=== PATIENT | female | born 2005 | race Caucasian/White ===

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

== ENCOUNTER 2025-01-10 18:38 | Emergency (ER) | payer SELFPAY ==
[2025-01-10 18:39] VITALS: BP 142/89; PULSE 116; RESP 16; TEMP 36.2; O2SAT 98
--- NOTE | 2025-01-10 19:04 | EDS_ITS ---
HPI History of Present Illness Chief Complaint: Dental Informant: patient Onset/Context/Timing Onset: Weeks (2) Context: Gradual Onset Timing: Continuous Quality: Sharp, stabbing Location: Left lower molar Worsened by: Chewing Relieved by: - (Nothing) Associated Symptoms Assocated Symptom - Dental: jaw swelling and face swelling; Negative for fever, cold sensitivity or hot sensitivity Narrative Narrative: Patient presents with left lower dental pain that has been getting worse over the past 2 weeks. Patient describes her pain as sharp and stabbing. Patient states it is over the left lower second molar. Patient states her pain is worse with chewing. Patient states she has been taking Tylenol with minimal relief. Patient states she has had intermittent swelling of her jaw and face. Patient denies any hot or cold sensitivities. Patient denies any fevers or chills. PFSH PFSH Medical History no medical history no medical history Home Medications ?Medication ?Instructions ?Recorded ?Last Taken ?Type albuterol sulfate 90 mcg/actuation 1 inh inhalation ON CE 11/17/21 Unknown History aerosol inhaler loratadine 10 mg tablet (Claritin) 10 mg PO DAILY 04/03 Unknown History multivitamin 1 tab PO DAILY 11/17/21 Unkn own History penicillin V potassium 500 mg 500 mg PO 4X/DAY #40 tab s 01/10/25 Unknown Rx tablet Allergy/AdvReac Type Severity Reaction Status Date / Time No Known Allergies Allergy Verified 06/14/23 17:23 Surgical History no surgical history no surgical history Social History Smoking Status: Never smoker alcohol intake: never ROS ROS ED Constitutional Constitutional ED: Denies chills or fever(s) Eyes Eyes: Denies blurry vision or change in vision ENT ENT ED: Denies rhinorrhea or sore throat Cardiovascular Cardiovascular: Denies chest pain or palpitations Respiratory/Chest Respiratory/Chest: Denies cough or dyspnea Gastrointestinal Gastrointestinal: Denies nausea or vomiting Genitourinary Genitourinary ED: Denies dysuria or hematuria Musculoskeletal Musculoskeletal: Denies back pain or neck pain Integumentary Denies abscess or rash Neurologic Neurologic: Denies headache(s) or weakness Allergic/Immunologic Allergic/Immunologic ED: Denies mouth swelling or urticaria EXAM Physical Exam Const Vital Signs: 01/10/25 18:39 Temperature 97.1 F L Temperature Source Temporal Pulse Rate 116 H Respiratory Rate 16 Blood Pressure 142/89 H Blood Pressure Mean 106 Pulse Ox 98 Oxygen Delivery Method Room Air Positive well nourished and well developed General Appearance ED: well developed and NAD HEENT HEENT Narrative: There is a large dental carry noted over the left lower second molar. There is some mild gingival edema around this tooth. There is tenderness to percussion. There is no fluctuance. There is no discharge or drainage. There is no sublingual edema. There is no evidence of Carlos's angina. Oropharynx is clear. Airway is patent. Teeth and Gingiva: caries and gingiva abnormal Positive for gingival edema Throat: posterior oropharynx normal Neck supple and no JVD General: Negative for anterior neck swelling, tenderness or submandibular sw elling Neuro oriented x3, CN's II-XII intact bilaterally, moves all extremities, no focal motor deficits and no sensory deficits noted Sensorium / Orientation: alert Motor Exam: strength 5/5 throughout Psych mental status grossly normal MDM MDM MDM Narrative Medical decision making narrative: Patient was advised she has a large dental carry of her left lower second molar. Patient was given a prescription for Pen-Vee K. Patient was instructed to follow-up with a dentist in 5 to 7 days. Patient was instructed to continue Tylenol and ibuprofen as needed for pain. Patient was instructed to return if worse in any way. Patient understood and was agreeable with the plan. All questions were answered. Discharge Plan Triage Chief Complaint: Dental ED Provider: Tung Nuñez Dx/Rx/DC Orders Clinical Impression: Infected dental caries, Odontalgia Instructions: ED Dental Pain, ED Dental Cavity Prescriptions: New penicillin V potassium 500 mg tablet 500 mg PO 4X/DAY Qty: 40 0RF No Action albuterol sulfate 90 mcg/actuation HFA aerosol inhaler 1 inh inhalation ONCE loratadine [Claritin] 10 mg tablet 10 mg PO DAILY multivitamin Tablet 1 tab PO DAILY Primary Care Provider: NOT,DEFINED Referrals: NOT[facility]DEFINED [facility]-7 Days Print Language: Kyrgyz Disposition Disposition: Home, Self Care
[2025-01-10] MEDS: Penicillin Vk 250 MG Tablet 500 MG PO (19:24)
[2025-01-10] MEDS: Naproxen 500 MG Tablet PO (19:24)
== END 2025-01-10 19:36 | disposition home or self-care (01) ==
LOC: ED 19:18
PROVIDERS: Emergency Provider Emergency Medicine; Visit Provider Emergency Medicine
DX: K02.9 Dental caries, unspecified (principal); K08.89 Other specified disorders of teeth and supporting structures; Z79.899 Other long term (current) drug therapy
CPT/HCPCS: 99283